=== PATIENT | male | born 1965 | race Two or more races ===

== ENCOUNTER 2022-11-26 07:31 | Emergency (ER) | payer OTHER ==
[~2022-11-26] VITALS: Ht 170.2 cm; Wt 104.3 kg
[2022-11-26] MEDS ORDERED: TAMS0.4C PO (07:41)
== END 2022-11-26 11:00 | disposition home or self-care (01) ==
LOC: ER 07:31
DX: J06.9 Acute upper respiratory infection, unspecified (principal); Z88.0 Allergy status to penicillin; Z20.822 Contact with and (suspected) exposure to COVID-19